=== PATIENT | female | born 2005 | race Caucasian/White ===

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

== ENCOUNTER 2024-12-25 13:32 | Emergency (ER) | payer BC, OTHER ==
[~2024-12-25] VITALS: Ht 170.2 cm; Wt 54.1 kg
[2024-12-25 13:35] VITALS: TEMP 98; O2SAT 100
[2024-12-25 16:36] VITALS: BP 107/72
== END 2024-12-25 16:37 | disposition home or self-care (01) ==
LOC: M ED 13:32
DX: M62.830 Muscle spasm of back (principal); V49.50XA Passenger injured in collision with unspecified motor vehicles in traffic accident, initial encounter; Z88.0 Allergy status to penicillin; Y99.9 Unspecified external cause status; Y92.410 Unspecified street and highway as the place of occurrence of the external cause

== ENCOUNTER → 2025-08-19 | Outpatient (CLI) | payer BC ==
[2025-08-19 15:16] LABS: BASO # 0.0 10^3/uL (0.0-0.2); BASO % 0.4 % (0.0-1.0); EOS # 0.1 10^3/uL (0.0-0.5); EOS % 0.7 % (0.0-3.0); LYMPH # 2.4 10^3/uL (1.5-5.0); LYMPH % 24.3 % (24.0-44.0); MONO # 0.5 10^3/uL (0.0-0.8); MONO % 5.2 % (2.0-8.0); NEUTROPHILS # 6.7 10^3/uL (1.5-8.5); NEUTROPHILS % 69.3 % (36.0-66.0); PLATELET COUNT, AUTOMATED 279 10^3/uL (150-450)
[2025-08-19 15:43] LABS: ALT/SGPT 18 U/L (7.0-40); AST/SGOT 21 U/L (<34); CALCIUM LEVEL 9.2 MG/DL (8.5-10.1); CARBON DIOXIDE LEVEL 29 MMOL/L (20-31); CHLORIDE LEVEL 105 MMOL/L (98-107); CREATININE FOR GFR 0.82 MG/DL (0.55-1.30); GLOMERULAR FILTRATION RATE > 90.0 (>60); IRON (FE) 45 UG/DL (50-170); PERCENT SATURATION 13.2 % (13.2-45.0); POTASSIUM SERUM 4.3 MMOL/L (3.5-5.1); SODIUM LEVEL 142 MMOL/L (136-145)
[2025-08-19 15:45] LABS: FREE T4 1.37 NG/DL (0.89-1.76)
== END ==
LOC: M RAD 11:41
PROVIDERS: ATTEND Family Medicine
DX: Z00.01 Encounter for general adult medical examination with abnormal findings (principal); K59.00 Constipation, unspecified; R53.83 Other fatigue